=== PATIENT | female | born 1975 | race African-American/Black ===

== ENCOUNTER 2018-04-01 15:17 | Emergency (ER) | payer BC ==
[~2018-04-01] VITALS: Ht 177.8 cm; Wt 82.0 kg
[2018-04-01] MEDS: NITROGLYCERIN 0.4MG TABLET SL SL PRN ×2 (16:19→17:15)
[2018-04-01 17:17] LABS: HEMATOCRIT. 39.6 % (36.0-48.0); HEMOGLOBIN. 13.8 g/dL (12.0-16.0); MEAN CORPUSCULAR HEMOGLOBIN 31.3 pg (28.0-32.0); MEAN CORPUSCULAR VOLUME 89.9 fL (81.0-99.0); MEAN PLATELET VOLUME 8.7 fl (7.4-10.4); PLATELET 282 x1000/uL (130-400); RED BLOOD CELL COUNT 4.41 mill/uL (4.2-5.4); RED CELL DISTRIBUTION WIDTH 12.4 % (11.6-14.6)
[2018-04-01 17:18] LABS: CHLORIDE 108 mEq/L (98-107)
[2018-04-01 17:32] LABS: PARTIAL THROMBOPLASTIN TIME 22.3 sec (23.4-31.0)
[2018-04-01 17:41] LABS: HCG SCREEN NEGATIVE
[2018-04-01] MEDS ORDERED: IBUPROFEN 600MG TABLET PO ONE (18:15)
[2018-04-01] MEDS ORDERED: DIAZEPAM 5 MG TABLET PO ONE (18:30)
[2018-04-01 21:05] LABS: PLATELET ESTIMATE NORMAL
[2018-04-01 22:23] VITALS: BP 118/72
== END 2018-04-01 22:30 | disposition home or self-care (01) ==
LOC: ER 17:26
DX: R07.9 Chest pain, unspecified (principal); J45.909 Unspecified asthma, uncomplicated; I48.91 Unspecified atrial fibrillation; Z90.710 Acquired absence of both cervix and uterus
CPT/HCPCS: 36415; 71045; 83880; 84484; 84703; 93005; 99284